=== PATIENT | male | born 1960 | race Caucasian/White ===

== ENCOUNTER → 2016-08-28 09:10 | Outpatient (CLI) | payer OTHER ==
[2013-05-13 10:57] VITALS: BMI 29.4
[~2016-08-28 09:10] MED LIST: BAYER CHEWABLE81 MG PO; FISH OIL 1,0001 CA1 PO; GLUCOSAMINE & C1 CAP; ZANAFLEX4 MG PO
[2016-08-28 10:05] LABS: BASOPHILS 0.2 % (0.0-2.0); EOSINOPHILS 1.8 % (0-7); HEMATOCRIT 43.9 % (42.0-54.0); HEMOGLOBIN 15.1 g/dL (13.5-17.5); IMMATURE GRANULOCYTES 0.2 % (0-5); LYMPHOCYTES 33.1 % (15-50); MCH 30.8 pg (26.0-34.0); MCHC 34.4 g/dL (31.0-37.0); MCV 89.6 fL (80.0-100.0); MEAN PLATELET VOLUME 10.2 fL (7.4-10.4); MONOCYTES 10.9 % (2-11); NEUTROPHILS 53.8 % (40-80); PLATELET COUNT 188 10x3/uL (130-400); RDW 12.7 % (11.5-14.5); WBC 4.4 10x3/uL (4.8-10.8)
[2016-08-28 10:17] LABS: INR 0.99 (0.85-1.17)
[2016-08-28 10:46] LABS: % SATURATION 54 % (15-55); IRON 153 ug/dl (35-150); TOTAL IRON BIND CAPACITY 280 ug/dl (260-445); UNSAT IRON BIND CAPACITY 127 ug/dl (150-375)
[2016-08-28 10:56] LABS: ALBUMIN 3.9 g/dL (3.4-5.0); ALKALINE PHOSPHATASE 60 U/L (46-116); ALT (SGPT) 104 U/L (10-68); BILIRUBIN - INDIRECT 0.99 mg/dL (0.00-1.00); BILIRUBIN - TOTAL 1.19 mg/dL (0.2-1.3); CALC OSMOLALITY 277 mosm/kg (275-300); CALCIUM 9.1 mg/dL (8.5-10.1); CARBON DIOXIDE 27.9 mmol/L (21.0-32.0); CHLORIDE - SERUM 103 mmol/L (98-107); CHOL - HDL RATIO 3.5 ratio (2.3-4.9); CHOLESTEROL, TOTAL 195 mg/dL (0-200); FERRITIN 665 ng/mL (3-244); GAMMA GT 198 U/L (5-85); GLUCOSE 93 mg/dL (74-106); HDL CHOLESTEROL 56 mg/dL (32-96); LDL CHOLESTEROL 106 mg/dL (0-100); LDL-HDL RATIO 1.9 ratio (1.5-3.5); POTASSIUM - SERUM 4.5 mmol/L (3.5-5.1); PROTEIN - SERUM 6.8 g/dL (6.4-8.2); SODIUM 140 mmol/L (136-145); TRIGLYCERIDE 166 mg/dL (30-200); UREA NITROGEN 11 mg/dL (7-18); eGFR NON AFRICAN AMERICAN 83 mL/min (90-120)
[2016-08-29 08:20] LABS: ALPHA FETOPROTEIN -(TUMOR MRK) 2.6 ng/mL (0.0-8.3)
[2016-08-29 10:18] LABS: FOLATE (FOLIC ACID) - SERUM 14.7 ng/mL (>3.0)
[2016-08-29 10:18] LABS: ANA REFLEX - DIRECT Negative (Negative)
[2016-08-29 11:16] LABS: HEPATITIS C ANTIBODY <0.1 (0.0-0.9)
[2016-08-30 14:27] LABS: SMOOTH MUSCLE ABS (ACTIN) 8 Units (0-19)
== END | disposition home or self-care (01) ==
LOC: D.US 09:10
PROVIDERS: Internal Medicine Gastroenterology
DX: K76.0 Fatty (change of) liver, not elsewhere classified (principal)

== ENCOUNTER → 2017-02-27 08:55 | Outpatient (CLI) | payer OTHER ==
[2013-05-13 10:57] VITALS: BMI 29.4
[2017-02-27 09:45] LABS: ALBUMIN 3.9 g/dL (3.4-5.0); BILIRUBIN - DIRECT 0.21 mg/dL (0.00-0.30); BILIRUBIN - INDIRECT 1.07 mg/dL (0.00-1.00); BILIRUBIN - TOTAL 1.28 mg/dL (0.2-1.3); PROTEIN - SERUM 7.1 g/dL (6.4-8.2)
== END | disposition home or self-care (01) ==
LOC: D.US 08:55
PROVIDERS: Internal Medicine Gastroenterology
DX: K76.0 Fatty (change of) liver, not elsewhere classified (principal); R79.89 Other specified abnormal findings of blood chemistry

== ENCOUNTER → 2017-08-29 08:59 | Outpatient (CLI) | payer OTHER ==
[2013-05-13 10:57] VITALS: BMI 29.4
[2017-08-29 10:27] LABS: ALBUMIN 3.9 g/dL (3.4-5.0); BILIRUBIN - DIRECT 0.23 mg/dL (0.00-0.30); BILIRUBIN - INDIRECT 1.01 mg/dL (0.00-1.00); BILIRUBIN - TOTAL 1.24 mg/dL (0.2-1.3); PROTEIN - SERUM 7.5 g/dL (6.4-8.2)
== END | disposition home or self-care (01) ==
LOC: D.US 08:59
PROVIDERS: Internal Medicine Gastroenterology
DX: K76.0 Fatty (change of) liver, not elsewhere classified (principal); R74.8 Abnormal levels of other serum enzymes

== ENCOUNTER → 2018-03-04 08:57 | Outpatient (CLI) | payer OTHER ==
[2013-05-13 10:57] VITALS: BMI 29.4
[2018-03-04 10:18] LABS: ALBUMIN 3.6 g/dL (3.4-5.0); BILIRUBIN - DIRECT 0.15 mg/dL (0.00-0.30); BILIRUBIN - INDIRECT 0.51 mg/dL (0.00-1.00); BILIRUBIN - TOTAL 0.66 mg/dL (0.2-1.3); PROTEIN - SERUM 6.7 g/dL (6.4-8.2)
== END | disposition home or self-care (01) ==
LOC: D.US 08:57
PROVIDERS: Internal Medicine Gastroenterology
DX: K76.0 Fatty (change of) liver, not elsewhere classified (principal)

== ENCOUNTER → 2018-09-12 07:47 | Outpatient (CLI) | payer OTHER ==
[2013-05-13 10:57] VITALS: BMI 29.4
[2018-09-12 09:15] LABS: ALBUMIN 3.9 g/dL (3.4-5.0); BILIRUBIN - DIRECT 0.19 mg/dL (0.00-0.30); BILIRUBIN - INDIRECT 0.95 mg/dL (0.00-1.00); BILIRUBIN - TOTAL 1.14 mg/dL (0.2-1.3); PROTEIN - SERUM 7.4 g/dL (6.4-8.2)
== END | disposition home or self-care (01) ==
LOC: D.US 07:47
PROVIDERS: ATTEND Internal Medicine Gastroenterology
DX: K76.0 Fatty (change of) liver, not elsewhere classified (principal)

== ENCOUNTER 2019-02-21 19:43 | Inpatient (IN) | payer OTHER ==
[~2019-02-21] VITALS: Ht 190.5 cm; Wt 128.6 kg
[2019-02-21] MEDS ORDERED: WELCHOL625 MG PO (20:09)
[2019-02-21] MEDS ORDERED: LISINOPRIL20 MG PO (20:09)
--- NOTE | 2019-02-21 20:38 | NUR ---
PT LEFT ED VIA STRETCHER FOR CT.
[2019-02-21 20:41] LABS: ALBUMIN 3.1 g/dL (3.4-5.0); ANION GAP 15.3 mmol/L (8-16); BILIRUBIN - TOTAL 2.56 mg/dL (0.2-1.3); CALCIUM 9.1 mg/dL (8.5-10.1); CARBON DIOXIDE 21.8 mmol/L (21.0-32.0); CREATININE - SERUM 1.2 mg/dL (0.6-1.3); POTASSIUM - SERUM 4.1 mmol/L (3.5-5.1); PROTEIN - SERUM 7.9 g/dL (6.4-8.2)
--- NOTE | 2019-02-21 20:54 | NUR ---
PT RETURNED FROM CT VIA STRETCHER.
[2019-02-21 20:55] LABS: BASOPHILS 0.1 % (0-2); EOSINOPHILS 0.1 % (0-7); HEMATOCRIT 42.3 % (42.0-54.0); HEMOGLOBIN 15.2 g/dL (13.5-17.5); IMMATURE GRANULOCYTES 0.6 % (0-5); LYMPHOCYTES 6.4 % (15-50); MCH 31.5 pg (26.0-34.0); MCHC 35.9 g/dL (31.0-37.0); MCV 87.6 fL (80.0-100.0); MEAN PLATELET VOLUME 11.1 fL (7.4-10.4); MONOCYTES 12.8 % (2-11); PLATELET COUNT 147 10x3/uL (130-400); RBC 4.83 10x6/uL (4.20-6.10); RDW 13.3 % (11.5-14.5); WBC 20.8 10x3/uL (4.8-10.8)
[2019-02-21 20:59] LABS: APPEARANCE CLOUDY (CLEAR); BILIRUBIN NEGATIVE (NEGATIVE); COLOR DK YELLOW (YELLOW); GLUCOSE NEGATIVE (NEGATIVE); KETONE NEGATIVE (NEGATIVE); NITRITE NEGATIVE (NEGATIVE); PROTEIN 3+ mg/dL (NEGATIVE); UROBILINOGEN NORMAL (NORMAL); WHITE CELLS - URINE RARE /hpf (0-5)
[2019-02-21 21:00] LABS: RED CELLS - URINE 25-50 /hpf (0-5)
[2019-02-21 21:02] LABS: LIPASE 184 U/L (73-393); PRO BNP 111 pg/mL (0-125); THYROID STIMULATING HORMONE 2.45 uIU/mL (0.36-3.74)
[2019-02-21 21:03] LABS: TROPONIN-I < 0.017 ng/mL (0.000-0.060)
--- NOTE | 2019-02-21 21:25 | NUR ---
PT UPDATED ON PLAN OF CARE. PT SPOUSE AT BEDSIDE.
[2019-02-21 21:35] VITALS: BP 127/76
[2019-02-21 22:33] VITALS: BP 125/72; Ht 190.5 cm; Wt 128.6 kg
[2019-02-22] VITALS: BP 125/72
[2019-02-22 04:00] VITALS: BP 98/63
[2019-02-22 06:35] LABS: BASOPHILS 0.1 % (0-2); EOSINOPHILS 0.9 % (0-7); HEMOGLOBIN 13.9 g/dL (13.5-17.5); IMMATURE GRANULOCYTES 0.8 % (0-5); LYMPHOCYTES 9.2 % (15-50); MCH 31.4 pg (26.0-34.0); MCHC 35.6 g/dL (31.0-37.0); MEAN PLATELET VOLUME 10.7 fL (7.4-10.4); PLATELET COUNT 137 10x3/uL (130-400); RBC 4.43 10x6/uL (4.20-6.10); RDW 13.4 % (11.5-14.5)
[2019-02-22 06:40] LABS: WBC 14.8 10x3/uL (4.8-10.8)
[2019-02-22 07:10] LABS: ALBUMIN 2.6 g/dL (3.4-5.0); ALKALINE PHOSPHATASE 78 U/L (46-116); ALT (SGPT) 124 U/L (10-68); BILIRUBIN - TOTAL 1.29 mg/dL (0.2-1.3); CALC OSMOLALITY 277 mosm/kg (275-300); CALCIUM 8.8 mg/dL (8.5-10.1); CARBON DIOXIDE 26.4 mmol/L (21.0-32.0); CHLORIDE - SERUM 104 mmol/L (98-107); GLUCOSE 90 mg/dL (74-106); POTASSIUM - SERUM 4.2 mmol/L (3.5-5.1); SODIUM 138 mmol/L (136-145); UREA NITROGEN 19 mg/dL (7-18); eGFR NON AFRICAN AMERICAN 82 mL/min (90-120)
--- NOTE | 2019-02-22 07:39 | NUR ---
ALERT AND ORIENTED. LUNGS CLEAR BILATERALLY IN ALL VIGIL. HEART SOUNDS S1 AND S2 HEARD IN ALL VIGIL. BOWEL SOUNDS ACTIVE X 4. STATES HAD SMALL BM THIS AM BUT DID NOT SAVE. URINE IN URINAL YELLOW AND CLEAR. IV TO LEFT AC PATENT WITHOUT REDNESS. SKIN INTACT WITHOUT REDNESS. DENIES PAIN. DENIES NEEDS. AT BEDSIDE. WILL CONTIUE TO MONITOR.
[2019-02-22 07:58] VITALS: BP 122/74
--- NOTE | 2019-02-22 09:54 | NUR ---
RESTING IN BED. AT BEDSIDE. DENIES PAIN. DENIES NEEDS. WILL CONTINUE TO MONITOR.
--- NOTE | 2019-02-22 10:32 | NUR ---
TOOK OFF TELEMETRY. STATES DOES NOT WANT TO WEAR. RETURNED TO [place], [employer].
--- NOTE | 2019-02-22 12:30 | NUR ---
PATIENT HAD LARGE BM.
[2019-02-22 12:43] VITALS: BP 125/76
--- NOTE | 2019-02-22 12:58 | NUR ---
URINE NOTED TO BE YELLOW IN COLOR. NO HEMATURIA NOTED.
--- NOTE | 2019-02-22 16:13 | NUR ---
RESTING IN BED. DENIES PAIN. DENIES NEEDS. WILL CONTINUE TO MONITOR.
--- NOTE | 2019-02-22 17:44 | NUR ---
IV PULLED OUT TO LEFT AC. WILL ATTEMPT TO RESITE.
--- NOTE | 2019-02-22 18:25 | NUR ---
IV RESITED TO RIGHT WRIST AFTER 3 ATTEMPTS BY 2 RNS.
[2019-02-22 18:26] VITALS: BP 143/89
--- NOTE | 2019-02-22 18:35 | NUR ---
RESTING IN BED. DENIES PAIN. DENIES NEEDS. WILL CONTINUE TO MONITOR.
--- NOTE | 2019-02-22 19:00 | NUR ---
REPORT RECEIVED AND CARE OF PT ASSUMED. PT LYING IN SUPINE POSITION WATCHING TV. IV TO RIGHT WRIST PATENT WITH NS INFUSING AT 125 ML/HR. WILL MONITOR FOR NEEDS.
[2019-02-22 20:00] VITALS: BP 122/80
--- NOTE | 2019-02-22 20:35 | NUR ---
HS MEDICATIONS GIVEN. WILL CONTINUE TO MONITOR FOR NEEDS.
--- NOTE | 2019-02-22 20:55 | NUR ---
GAVE TURKEY SANDWICH TRAY FOR HS SNACK. WILL CONTINUE TO MONITOR FOR NEEDS.
[2019-02-23] VITALS: BP 108/69
[2019-02-23 04:00] VITALS: BP 111/74
[2019-02-23 06:16] LABS: HEMATOCRIT 37.3 % (42.0-54.0); HEMOGLOBIN 13.3 g/dL (13.5-17.5); MCH 30.9 pg (26.0-34.0); MCHC 35.7 g/dL (31.0-37.0); MCV 86.5 fL (80.0-100.0); MEAN PLATELET VOLUME 10.4 fL (7.4-10.4); PLATELET COUNT 153 10x3/uL (130-400); RBC 4.31 10x6/uL (4.20-6.10); RDW 13.3 % (11.5-14.5)
[2019-02-23 06:30] LABS: WBC 8.6 10x3/uL (4.8-10.8)
[2019-02-23 06:42] LABS: ALBUMIN 2.6 g/dL (3.4-5.0); ALKALINE PHOSPHATASE 78 U/L (46-116); ALT (SGPT) 137 U/L (10-68); BILIRUBIN - TOTAL 0.54 mg/dL (0.2-1.3); CALC OSMOLALITY 279 mosm/kg (275-300); CALCIUM 8.5 mg/dL (8.5-10.1); CARBON DIOXIDE 21.5 mmol/L (21.0-32.0); CHLORIDE - SERUM 108 mmol/L (98-107); GLUCOSE 93 mg/dL (74-106); POTASSIUM - SERUM 3.8 mmol/L (3.5-5.1); PROTEIN - SERUM 6.8 g/dL (6.4-8.2); SODIUM 140 mmol/L (136-145); UREA NITROGEN 16 mg/dL (7-18); eGFR NON AFRICAN AMERICAN 82 mL/min (90-120)
[2019-02-23 07:47] LABS: EOSINOPHILS 1 % (0-7); LYMPHOCYTES 15 % (15-50); MONOCYTES 11 % (2-11); NEUTROPHILS 71 % (40-80); PLATELET ESTIMATE NORMAL
--- NOTE | 2019-02-23 08:00 | NUR ---
PATIENT IN BED WITH IV INTACT. NO COMPLAINTS. CALL LIGHT WITHIN REACH.
[2019-02-23 08:46] VITALS: BP 124/84
[2019-02-23 13:03] VITALS: BP 118/83
[2019-02-23 17:41] VITALS: BP 121/82
--- NOTE | 2019-02-23 18:56 | NUR ---
PATIENT IN BED WITH IV INTACT. NO COMPLAINTS OR SIGNS OF DISTRESS. CALL LIGHT WITHIN REACH.
--- NOTE | 2019-02-23 20:00 | NUR ---
ASSESSMENT PER FLOWSHEET. IV PATENT R ARM OF NS AT 125CC'S/HR. SITE CLEAR. HOB UP DENIES NEEDS SR UP X2 CALL LIGHT WITHIN REACH.
--- NOTE | 2019-02-23 20:45 | NUR ---
MEDS GIVEN PER MAR.
[2019-02-23 21:17] VITALS: BP 121/75
--- NOTE | 2019-02-23 23:58 | NUR ---
RESTING QUIETLY DENIES NEEDS
[2019-02-24 04:42] VITALS: BP 103/71
--- NOTE | 2019-02-24 05:31 | NUR ---
EYES CLOSED RESPIRATIONS WITH EASE AND UNLABORED.
[2019-02-24 05:39] LABS: BASOPHILS 0.5 % (0-2); EOSINOPHILS 2.8 % (0-7); HEMATOCRIT 38.7 % (42.0-54.0); HEMOGLOBIN 13.8 g/dL (13.5-17.5); IMMATURE GRANULOCYTES 3.1 % (0-5); LYMPHOCYTES 23.6 % (15-50); MCH 31.1 pg (26.0-34.0); MCHC 35.7 g/dL (31.0-37.0); MCV 87.2 fL (80.0-100.0); MEAN PLATELET VOLUME 10.4 fL (7.4-10.4); MONOCYTES 14.2 % (2-11); NEUTROPHILS 55.8 % (40-80); PLATELET COUNT 163 10x3/uL (130-400); RBC 4.44 10x6/uL (4.20-6.10); RDW 13.6 % (11.5-14.5); WBC 8.2 10x3/uL (4.8-10.8)
[2019-02-24 05:54] LABS: ALBUMIN 2.5 g/dL (3.4-5.0); ALKALINE PHOSPHATASE 76 U/L (46-116); ALT (SGPT) 165 U/L (10-68); BILIRUBIN - TOTAL 0.43 mg/dL (0.2-1.3); CALC OSMOLALITY 279 mosm/kg (275-300); CALCIUM 8.7 mg/dL (8.5-10.1); CARBON DIOXIDE 21.7 mmol/L (21.0-32.0); CHLORIDE - SERUM 110 mmol/L (98-107); CREATININE - SERUM 0.8 mg/dL (0.6-1.3); GLUCOSE 85 mg/dL (74-106); POTASSIUM - SERUM 4.2 mmol/L (3.5-5.1); PROTEIN - SERUM 6.5 g/dL (6.4-8.2); SODIUM 141 mmol/L (136-145); UREA NITROGEN 13 mg/dL (7-18); eGFR NON AFRICAN AMERICAN > 90 mL/min (90-120)
[2019-02-24 08:06] VITALS: BP 119/86
--- NOTE | 2019-02-24 08:15 | NUR ---
PATIENT IN BED WITH IV INTACT. NO COMPLAINTS OR SIGNS OF DISTRESS. IV LEAKING AT THIS TIME. REMOVED WITH CATH INTACT. NOT RESTARTING BC PATIENT BEING DC'D. DENIES ANY NEEDS. CALL LIGHT WITHIN REACH.
[2019-02-24] MEDS ORDERED: FLOMAX0.4 MG PO (09:26)
[2019-02-24] MEDS ORDERED: LEVOFLOXACIN500 MG PO (09:27)
--- NOTE | 2019-02-24 10:45 | NUR ---
PATIENT RECIEVED DC INSTRUCTIONS. VERBALIZED UNDERSTANDING. NO QUESTIONS AT THIS TIME. EXPLAINED TO PER DIEM NURSE PRESCRIPTIONS AT [facility]. VERBALIZED UNDERSTANDING. AWAITING TRANSPORTATION FOR DC.
--- NOTE | 2019-02-24 11:00 | NUR ---
PATIENT AMBULATED DOWN TO PRIVATE VEHICLE WITH PERSONAL BELONGINGS ESCORTED BY RN AT THIS TIME.
== END 2019-02-24 11:00 | disposition home or self-care (01) | DRG 872 ==
LOC: D.ER 19:43 → D.MS 21:33
PROVIDERS: Family Medicine; ADMIT Family Medicine; ATTEND Family Medicine
DX: A41.9 Sepsis, unspecified organism (principal); N39.0 Urinary tract infection, site not specified; K59.00 Constipation, unspecified; I10 Essential (primary) hypertension; E66.9 Obesity, unspecified; Z68.35 Body mass index [BMI] 35.0-35.9, adult

== ENCOUNTER → 2019-03-16 08:41 | Outpatient (CLI) | payer OTHER ==
[2019-02-21 22:33] VITALS: BMI 35.4
[~2019-03-16 08:41] MED LIST changes: +FLOMAX0.4 MG PO; +LEVOFLOXACIN500 MG PO; +LISINOPRIL20 MG PO; +WELCHOL625 MG PO
[2019-03-16 10:00] LABS: ALBUMIN 3.9 g/dL (3.4-5.0); BILIRUBIN - DIRECT 0.24 mg/dL (0.00-0.30); BILIRUBIN - INDIRECT 1.18 mg/dL (0.00-1.00); BILIRUBIN - TOTAL 1.42 mg/dL (0.2-1.3); PROTEIN - SERUM 7.4 g/dL (6.4-8.2)
== END | disposition home or self-care (01) ==
LOC: D.US 08:41
PROVIDERS: ATTEND Internal Medicine Gastroenterology
DX: K76.0 Fatty (change of) liver, not elsewhere classified (principal)

== ENCOUNTER → 2019-03-23 08:46 | Outpatient (CLI) | payer OTHER ==
[2019-02-21 22:33] VITALS: BMI 35.4
[2019-03-23 09:48] LABS: AMYLASE - SERUM 78 U/L (25-115); LIPASE 256 U/L (73-393)
== END | disposition home or self-care (01) ==
LOC: D.NM 08:46
PROVIDERS: ATTEND Internal Medicine Gastroenterology
DX: R74.8 Abnormal levels of other serum enzymes (principal)

== ENCOUNTER 2019-07-06 08:23 | Day surgery (SDC) | payer OTHER ==
[~2019-07-06] VITALS: Ht 190.5 cm; Wt 124.7 kg
[~2019-07-06 08:23] MED LIST changes: +THEREMS-M1 TAB PO
[2019-07-06 09:04] LABS: HEMATOCRIT 46.7 % (42.0-54.0); HEMOGLOBIN 16.3 g/dL (13.5-17.5); MCH 31.2 pg (26.0-34.0); MCHC 34.9 g/dL (31.0-37.0); MCV 89.5 fL (80.0-100.0); MEAN PLATELET VOLUME 9.8 fL (7.4-10.4); RBC 5.22 10x6/uL (4.20-6.10); RDW 13.2 % (11.5-14.5); WBC 5.6 10x3/uL (4.8-10.8)
[2019-07-06 09:57] VITALS: BP 118/73; Ht 190.5 cm; Wt 124.7 kg
[2019-07-06] MEDS ORDERED: HYDROCODON-ACE1 EAC7 PO (13:16)
--- NOTE | 2019-07-06 15:40 | NUR ---
DC INSTRUCTIONS GIVEN TO PT/SPOUSE. STATE UNDERSTANDING. DC'D IV CATH FULLY INTACT.
--- NOTE | 2019-07-06 15:51 | NUR ---
PT LEFT UNIT VIA WC AT 1545
== END 2019-07-06 15:45 | disposition home or self-care (01) ==
LOC: D.OPS 08:23 → D.PAN 10:30 → D.OPS 15:45
PROVIDERS: Anesthesiology; ATTEND Surgery
DX: K82.8 Other specified diseases of gallbladder (principal); I10 Essential (primary) hypertension; E78.00 Pure hypercholesterolemia, unspecified; R74.0 Nonspecific elevation of levels of transaminase and lactic acid dehydrogenase [LDH]

== ENCOUNTER → 2019-11-11 09:22 | Outpatient (CLI) | payer OTHER ==
[2019-07-06 09:57] VITALS: BMI 34.4
[~2019-11-11 09:22] MED LIST changes: +HYDROCODON-ACE1 EAC7 PO
[2019-11-11 10:39] LABS: ALBUMIN 3.8 g/dL (3.4-5.0); BILIRUBIN - DIRECT 0.23 mg/dL (0.00-0.30); BILIRUBIN - INDIRECT 1.61 mg/dL (0.00-1.00); BILIRUBIN - TOTAL 1.84 mg/dL (0.2-1.3); PROTEIN - SERUM 7.5 g/dL (6.4-8.2)
== END | disposition home or self-care (01) ==
LOC: D.LAB 09:22 → D.US 11:00
PROVIDERS: ATTEND Internal Medicine Gastroenterology
DX: K76.0 Fatty (change of) liver, not elsewhere classified (principal)

== ENCOUNTER 2019-11-26 06:28 | Outpatient (CLI) | payer OTHER ==
[~2019-11-26] VITALS: Ht 190.5 cm; Wt 131.8 kg
[2019-11-26 06:57] LABS: BASOPHILS 0.4 % (0-2); EOSINOPHILS 1.6 % (0-7); HEMATOCRIT 46.6 % (42.0-54.0); IMMATURE GRANULOCYTES 0.4 % (0-5); LYMPHOCYTES 32.1 % (15-50); MCH 30.7 pg (26.0-34.0); MCHC 34.3 g/dL (31.0-37.0); MCV 89.3 fL (80.0-100.0); MEAN PLATELET VOLUME 10.1 fL (7.4-10.4); MONOCYTES 11.8 % (2-11); NEUTROPHILS 53.7 % (40-80); PLATELET COUNT 181 10x3/uL (130-400); RBC 5.22 10x6/uL (4.20-6.10); RDW 13.1 % (11.5-14.5); WBC 4.9 10x3/uL (4.8-10.8)
[2019-11-26 07:18] VITALS: Ht 190.5 cm; Wt 131.8 kg
[2019-11-26 07:36] LABS: INR 0.98 (0.85-1.17); PROTIME 12.9 SECONDS (11.6-15.0)
[2019-11-26 07:41] LABS: ALBUMIN 4.1 g/dL (3.4-5.0); ALKALINE PHOSPHATASE 80 U/L (30-120); ALT (SGPT) 152 U/L (10-68); CALC OSMOLALITY 277 mosm/kg (275-300); CALCIUM 9.1 mg/dL (8.5-10.1); CARBON DIOXIDE 22.4 mmol/L (21.0-32.0); CHLORIDE - SERUM 106 mmol/L (98-107); GLUCOSE 89 mg/dL (74-106); POTASSIUM - SERUM 4.4 mmol/L (3.5-5.1); PROTEIN - SERUM 7.3 g/dL (6.4-8.2); SODIUM 139 mmol/L (136-145); UREA NITROGEN 15 mg/dL (7-18); eGFR NON AFRICAN AMERICAN 81 mL/min (90-120)
--- NOTE | 2019-11-26 13:03 | NUR ---
1155-PT DRESSED.REVIEWED DISCHARGE INSTRUCTIONS. VERBALIZED UNDERSTANDING.VSS.NO DISTRESS. NO N/V. DENIES PAIN.VSS.
--- NOTE | 2019-11-26 13:03 | NUR ---
1145-REMOVED IV WITH CATH INTACT,DISPOSED INTO SHARPS,COVERED WITH GUAZE,SECURED WITH MEDIPORE TAPE.
--- NOTE | 2019-11-26 13:04 | NUR ---
1200-ESCORTED OUT VIA W/C WITH SPOUSE AWAITING TO DRIVE HOME
== END 2019-11-26 12:00 | disposition home or self-care (01) ==
LOC: D.SP 06:28 → D.CT 09:00 → D.SP 09:00
PROVIDERS: Specialist; ATTEND Internal Medicine Gastroenterology
DX: K76.0 Fatty (change of) liver, not elsewhere classified (principal); R74.0 Nonspecific elevation of levels of transaminase and lactic acid dehydrogenase [LDH]; E80.6 Other disorders of bilirubin metabolism

== ENCOUNTER → 2020-10-31 07:46 | Outpatient (CLI) | payer OTHER ==
[2019-11-26 07:18] VITALS: BMI 36.3
[2020-10-31 08:48] LABS: ALBUMIN 3.8 g/dL (3.4-5.0); BILIRUBIN - DIRECT 0.27 mg/dL (0.00-0.30); BILIRUBIN - INDIRECT 1.27 mg/dL (0.00-1.00); BILIRUBIN - TOTAL 1.54 mg/dL (0.2-1.3); PROTEIN - SERUM 7.8 g/dL (6.4-8.2)
== END | disposition home or self-care (01) ==
LOC: D.US 07:46
PROVIDERS: ATTEND Internal Medicine Gastroenterology
DX: K76.0 Fatty (change of) liver, not elsewhere classified (principal)